=== PATIENT | male | born 1960 | race African-American/Black ===

== ENCOUNTER 2021-06-01 00:06 | Emergency (ER) | payer MEDICAID ==
[~2021-06-01] VITALS: Ht 167.6 cm; Wt 77.0 kg
[2021-06-01 01:00] VITALS: BP 119/63
== END 2021-06-01 01:52 | disposition left against medical advice (07) ==
LOC: ER 00:06
DX: Z53.21 Procedure and treatment not carried out due to patient leaving prior to being seen by health care provider (principal); F41.9 Anxiety disorder, unspecified